=== PATIENT | male | born 1970 | race Caucasian/White ===

== ENCOUNTER 2018-10-09 10:49 | Emergency (ER) | payer OTHER ==
[2018-10-09 11:10] VITALS: BP 145/103
--- NOTE | 2018-10-09 12:27 | ED Physician Documentation ---
PD HPI UPPER EXT INJURY - Stated complaint Stated Complaint: LT BICEP INJURY - Chief complaint Chief Complaint: Ext Problem - History obtained from History obtained from: Patient - History of Present Illness Location: Left, Arm Type of injury: Other (sudden weight) Where injury occurred: Work Timing - onset: Today Timing - duration: Hours Timing - details: Abrupt onset, Still present Improved by: Rest, Immobilization Worsened by: Moving, Palpating Associated symptoms: Swelling. 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 He is working a supervisory capacity at the current time. Review of Systems Constitutional: denies: Fever Nose: denies: Congestion Throat: denies: Sore throat Respiratory: denies: Cough GI: denies: Vomiting PD PAST MEDICAL HISTORY - Past Medical History Past Medical History: No - Allergies Allergies/Adverse Reactions: Allergies Allergy/AdvReac Type Severity Reaction Status Date / Time Penicillins Allergy Unknown Verified 10/09/18 11:05 - Social History Does the pt smoke?: No Smoking Status: Never smoker PD ED PE NORMAL - Vitals Vital signs reviewed: Yes (hypertensive) - General General: No acute distress, Well developed/nourished - HEENT HEENT: Atraumatic, PERRL, EOMI - Neck Neck: Supple, no meningeal sign - Respiratory Respiratory: No respiratory distress - Derm Derm: Normal color, Warm and dry, No rash - Extremities Extremities: Other (There is deformity to the distal biceps on the left with bunching of the muscle proximally and tenderness to the insertion of the tendon into the muslce. He is able to flex against some resistance. 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, No motor deficit, No sensory deficit, Normal speech Eye Opening: Spontaneous Motor: Obeys Commands Verbal: Oriented GCS Score: 15 - Psych Psych: Normal mood, Normal affect Results - Vitals Vitals: Vital Signs - 24 hr 10/09/18 11:01 Temperature 36.3 C L Heart Rate 96 Respiratory 16 Rate Blood Pressure 145/103 H O2 Saturation 100 Oxygen O2 Source Room air PD MEDICAL DECISION MAKING - ED course Complexity details: reviewed results, re-evaluated patient, considered differential, d/w patient ED course: 48-year-old male with a distal left biceps tendon rupture is placed into a sling he is given 10 mg of dexamethasone and he will follow-up with orthopedics. Departure - Departure Disposition: 01 Home, Self Care Clinical Impression: Rupture of left distal biceps tendon Qualifiers: Encounter type: initial encounter Qualified Code(s): S46.212A - Strain of muscle, fascia and tendon of other parts of biceps, left arm, initial encounter Condition: Stable Instructions: Biceps Tendonitis Distal Follow-Up: Aleksandr Delgado MD [Primary Care Provider] - [facility] [Provider Group] Discharge Date/Time: 10/09/18 12:55
[2018-10-09] MEDS ORDERED: DEXAMETHASONE 10 MG/ML VIAL PO STA (12:29)
[2018-10-09] MEDS ORDERED: CHERRY SYRUP 10 ML UDC PO ONE (12:29)
--- NOTE | 2018-10-10 06:18 | XRAY Report ---
Reason: TRAUMA Procedure Date: 10/09/2018 Accession Number: [id number] / [id number] Procedure: XR - Elbow 3 View LT CPT Code: FULL RESULT: EXAM: LEFT ELBOW RADIOGRAPHY EXAM DATE: 10/09/2018 11:41 AM. CLINICAL HISTORY: TRAUMA. Snapping sound COMPARISON: None. TECHNIQUE: 3 views. FINDINGS: Bones: Normal. No fractures or bone lesions. Joints: Normal. No effusion. No subluxation. Soft Tissues: Normal. No soft tissue swelling. IMPRESSION: Normal elbow radiography. RADIA
== END 2018-10-09 12:55 | disposition home or self-care (01) ==
LOC: ED 10:49
DX: S46.212A Strain of muscle, fascia and tendon of other parts of biceps, left arm, initial encounter (principal); X50.0XXA Overexertion from strenuous movement or load, initial encounter; Y93.89 Activity, other specified; Y99.0 Civilian activity done for income or pay
CPT/HCPCS: 1040M; 73080; 99282; 99283; A9270

== ENCOUNTER 2018-10-13 10:27 | Outpatient (CLI) | payer OTHER ==
[2018-10-13 10:39] LABS: BASOPHILS # (AUTO) 0.1 10^3/uL (0.0-0.1); BASOPHILS % (AUTO) 0.7 %; EOSINOPHILS # (AUTO) 0.2 10^3/uL (0.0-0.7); EOSINOPHILS % (AUTO) 2.3 %; LYMPHOCYTES # (AUTO) 1.8 10^3/uL (1.5-3.5); LYMPHOCYTES % (AUTO) 22.2 %; MEAN CORPUSCULAR HEMOGLOBIN 31.3 pg (27.0-31.0); MEAN CORPUSCULAR HGB CONC 33.9 g/dL (32.0-36.0); MEAN CORPUSCULAR VOLUME 92.3 fL (80.0-94.0); MEAN PLATELET VOLUME 9.4 fL (7.4-11.4); MONOCYTES # (AUTO) 0.5 10^3/uL (0.0-1.0); NEUTROPHILS # (AUTO) 5.4 10^3/uL (1.5-6.6); PLT - PLATELET COUNT 315 10^3/uL (130-450); RED BLOOD COUNT 4.16 10^6/uL (4.70-6.10); RED CELL DISTRIBUTION WIDTH 13.4 % (12.0-15.0); WHITE BLOOD COUNT 8.1 x10^3/uL (4.8-10.8)
[2018-10-13 10:48] LABS: CALCIUM 9.3 mg/dL (8.5-10.3); CREATININE 0.8 mg/dL (0.6-1.2)
== END 2018-10-13 10:28 | disposition home or self-care (01) ==
LOC: LAB 10:27
PROVIDERS: ATTEND Orthopaedic Surgery Sports Medicine
DX: Z01.812 Encounter for preprocedural laboratory examination (principal); S46.212A Strain of muscle, fascia and tendon of other parts of biceps, left arm, initial encounter; S46.222A Laceration of muscle, fascia and tendon of other parts of biceps, left arm, initial encounter; E11.9 Type 2 diabetes mellitus without complications
CPT/HCPCS: 36415; 80048; 85025

== ENCOUNTER 2018-10-18 07:49 | Day surgery (SDC) | payer OTHER ==
[2018-10-18] MEDS ORDERED: PROPOFOL 200 MG/20 ML VIAL IVP ONE (07:50)
[2018-10-18] MEDS ORDERED: MIDAZOLAM 2 MG/2 ML VIAL IVP ONE (07:50)
[2018-10-18] MEDS ORDERED: ONDANSETRON 4 MG/2 ML VIAL IVP ONE (07:50)
[2018-10-18] MEDS ORDERED: KETOROLAC 30 MG/ML VIAL IVP ONE (07:50)
[2018-10-18] MEDS ORDERED: LACTATED RINGERS 1,000 ML IV ONE (08:06)
[2018-10-18] MEDS ORDERED: CEFAZOLIN SODIUM IN 0.9 % NACL 2 GM/100 ML BAG IV ONE (08:08)
--- NOTE | 2018-10-18 10:01 | ANESTHESIA ---
Pre-Anesthesia VS, & Labs - Diagnosis left distal biceps avulsion - Procedure left distal biceps debridement/repair Height 5 ft 10 in Weight (kg) 115.6 kg Body Mass Index 35.9 - NPO >8 hours Home Medications and Allergies Home Medications: Ambulatory Orders Citalopram [CeleXA] 20 mg PO DAILY 10/17/18 Lisinopril 5 mg PO DAILY 10/17/18 Rosuvastatin Calcium 20 mg PO DAILY 10/17/18 metFORMIN [Glucophage] 500 mg PO DAILY 10/17/18 Citalopram [CeleXA] 20 mg PO DAILY 10/17/18 Lisinopril 5 mg PO DAILY 10/17/18 Rosuvastatin Calcium 20 mg PO DAILY 10/17/18 metFORMIN [Glucophage] 500 mg PO DAILY 10/17/18 Allergies/Adverse Reactions: Allergies Allergy/AdvReac Type Severity Reaction Status Date / Time Penicillins Allergy Rash Verified 10/18/18 08:22 Anes History & Medical History - Anesthetic History Anesthesia Complications: reports: No previous complications - Medical History Cardiovascular: reports: Hypertension, High cholesterol Pulmonary: reports: None Gastrointestinal: reports: GERD, Other Urinary: reports: None Musculoskeletal: reports: Other Endocrine/Autoimmune: reports: Type 2 diabetes Skin: reports: None Smoking Status: Never smoker Exam General: Alert Dental: WNL Mouth Opening: Greater than 4 Fingerbreadths Mallampati classification: II Thyromental Distance: greater than 6 cm Respiratory: Lungs clear, Normal breath sounds Cardiovascular: Regular rate, Normal S1, Normal S2 Mental/Cognitive Status: Alert/Oriented X3 Plan Anesthesia Type: General, Supraclavicular Block Consent for Procedure(s) Verified and Reviewed: Yes Code Status: Attempt Resuscitation ASA classification: 2-Mild systemic disease Is this case an emergency?: No
[2018-10-18] MEDS ORDERED: ACETAMINOPHEN 1,000 MG/100 ML 100 ML IV ONE (10:40)
[2018-10-18] MEDS ORDERED: CELECOXIB 100 MG CAPSULE PO ONE (10:41)
[2018-10-18] MEDS ORDERED: GABAPENTIN 400 MG CAPSULE ONE (10:41)
[2018-10-18] MEDS ORDERED: DEXAMETHASONE 4 MG/ML VIAL ONE (10:43)
[2018-10-18] MEDS ORDERED: fentaNYL 100 MCG/2 ML VIAL ONE (10:43)
[2018-10-18] MEDS ORDERED: MIDAZOLAM 2 MG/2 ML VIAL ONE (10:43)
[2018-10-18] MEDS: BUPIVACAINE 0.25%-EPI 1:200000 PF 30 ML VIAL ONE ×3 (12:35→13:13)
[2018-10-18] MEDS ORDERED: oxyCODONE 5 MG TABLET PO PRN (13:43)
--- NOTE | 2018-10-18 13:43 | IMMEDIATE POSTOPERATIVE NOTE ---
Immediate Postoperative Note - Procedure Note Procedure Date: 10/18/18 Pre-Op Diagnosis: Left distal biceps avulsion Procedure: Left distal biceps debridement and repair Post-Op Diagnosis: Same Primary Surgeon: Aye Nguyen MD Software Asset Management Analyst: None Anesthesia Type: General LMA, Local, Regional block Findings: Distal biceps avulsion and retraction and to arm some injury at musculotendinous junction of biceps though overall With good continuity Complications: No complications Estimated Blood Loss (in cc): 25 Plan of Care: Patient tolerated procedure well instrument sponge counts correct patient transferred to recovery room in stable condition. Patient will follow standard postop left distal biceps repair protocol. He will avoid active elbow flexion. He may do active wrist and hand activity. He will avoid weightbearing lift push pull left upper extremity. He would be in sling. He will follow-up in 10 to 14 days or sooner as needed basis.
[2018-10-18 15:11] VITALS: BP 132/75
--- NOTE | 2018-10-20 04:29 | OPERATIVE REPORT ---
DATE OF SERVICE: 10/18/2018 Physician: Sean Nguyen MD SURGEON: Sean Nguyen MD MANAGER PROGRAM MANAGEMENT: None. ANESTHESIA PROVIDER: Farrah Solo CRNA. ANESTHESIA TYPE: General anesthesia as well as ultrasound-guided left upper extremity regional block by anesthesia team as well as 20 mL of 0.25% Marcaine with epinephrine local. FLUIDS: 900 mL lactated Ringer's. COMPRESSION DEVICE: Bilateral calf SCD boots. ESTIMATED BLOOD LOSS: 25 mL. PREOPERATIVE ANTIBIOTICS: Weight-based IV Ancef. TOURNIQUET TIME: 57 minutes. Please see nursing report for further detail. TOURNIQUET PRESSURE: 250 mmHg. PREOPERATIVE DIAGNOSIS: Left distal biceps avulsion. POSTOPERATIVE DIAGNOSIS: Left distal biceps avulsion. PERFORMED: Left open distal biceps debridement and repair. INTRAOPERATIVE COMPLICATIONS: None noted. INTRAOPERATIVE FINDINGS: There was noted to be a complete avulsion of the distal biceps from the bicipital tuberosity of the radius. There is some maceration of the musculotendinous junction of the biceps, but overall integrity of the biceps muscle construct. There is near anatomic positioning of the biceps repair with good integrity of the repair with elbow range of motion. HISTORY OF PRESENT ILLNESS AND INDICATIONS: Patient is a 48-year-old gentleman who sustained a distal biceps rupture, is indicated for operative treatment. He had risks, benefits, and alternatives of operative and nonoperative treatment were reviewed in the clinic. His questions are answered, verbalized understanding of the above and verbalized wish to proceed with operative treatment. Informed consent was given. He wished to continue with this plan in the preoperative care unit on the day of surgery. PROCEDURE: On 10/18/2018, patient is identified in the preoperative care unit and identifies his left elbow as the operative site. This is signed by the operating surgeon. The patient received ultrasound-guided left upper extremity regional block by anesthesia team after site identification. Patient is then brought to the operating room. General anesthesia is administered and he is placed supine on the operating table with head, neck and extremities placed in anatomically comfortable and safe positions to avoid peripheral nerve stretch and compression. At this time, left upper extremity is placed with a well-padded tourniquet high on the arm, taking care to avoid encumbrance of the axilla. Then patient's left elbow and left upper extremity are pre-scrubbed with Hibiclens solution and then alcohol, followed by ChloraPrep and drape. At this point, surgical pause identifies left elbow as the operative site. Esmarch bandage is used for exsanguination and tourniquet is inflated. At this point, linear incision is made just distal to the antecubital crease. This incision is made through skin and spreading dissection is carried out. Care is taken to avoid iatrogenic injury to adjacent lateral antebrachial cutaneous nerve, which is identified and protected. At this point, digital dissection is carried out proximally such that the distal aspect of the triceps is identified and delivered with an Allis clamp. This is debrided with Metzenbaum scissors and copiously irrigated. At this point, #5 FiberWire is whipstitched from distal to proximal and then again distal. At this point, a biceps button OneTwoSee is used and the #5 FiberWire is placed through this per standard fashion such that this could be toggled later. This is set aside in the incision proximally and then attention is directed towards identifying the bicipital tuberosity radius. There is generally a pathway from the biceps down to the bicipital tuberosity with a donor site noted on the bicipital tuberosity of the radius. The [TIME: 03:50]are placed directly on the proximal radius to avoid iatrogenic injury to adjacent nerves. Supination is maintained and bicipital tuberosity is identified and a pin is placed here. This is confirmed using mini C-arm fluoroscopic image to be in appropriate position, at which point the biceps is sized and noted to be size 7, at which point guidepin is brought just into the second cortex and then the reamer is brought through the first cortex. Copious irrigation is performed with bony debris evacuation, at which point the guidepin is removed and then using the hernadez, the biceps button is placed into the socket through the second cortex, but not beyond that and allowed to toggle directly on the outer side of the second cortex, and then the elbow is flexed gently while maintaining supination as the biceps is toggled, such that it seats in the socket approximately 8-10 mm. At this point, using the arthroscopic knot pusher a surgeon's knot is tied and then multiple reverse half hitches, thereby fixing the biceps into the socket. Suture limbs are cut. The biceps is visualized and palpated to be directly in the bicipital tuberosity of the radius, integrity is confirmed. At this point, copious irrigation is performed. Hemostasis is achieved and then the skin is closed in layered fashion using 0 Vicryl, 2-0 Vicryl, and subcuticular Monocryl. Skin is washed and dried. Local anesthetic is infused. Steri-Strips are applied. Xeroform dressing is applied and then the patient is placed in a bulky splint with the elbow at 90 degrees and the forearm in neutral. The patient is placed in a sling. The patient tolerated the procedure well. Instrument and sponge counts correct. The patient is transferred to recovery room in stable condition. He will follow standard postoperative distal biceps repair protocol. He will be on perioperative antibiotics for 24 hours. He will be on p.r.n. narcotic analgesics with [id number] bowel regimen as necessary. He would avoid weightbearing, lift, push pull of left upper extremity. He would be encouraged to move hand and wrist. He would elevate as directed. He will follow up in 10- 14 days or sooner on an as-needed basis. The patient had previously had his questions answered and verbalized agreement with the plan as outlined. Additional procedure: Radiographic images mini C arm fluoroscopic image 3 views left elbow: AP and AP with pronation/ supination Radiographic indications intraoperative position of guidewire and implants left distal biceps repair Radiographic findings demonstrate guidepin in the bicipital tuberosity of the radius and then subsequent metallic button on opposite cortex of the bicipital tuberosity of the radius with absence of bone in the bicipital tuberosity radius consistent with socket no intra-articular hardware appropriate hardware position noted Radiographic impression left elbow as above TD: 10/19/2018 17:24 YOLANDA
== END 2018-10-18 07:50 | disposition home or self-care (01) ==
LOC: SDS 07:49
PROVIDERS: ATTEND Orthopaedic Surgery Sports Medicine
PROC: 0LM40ZZ Reattachment of Left Upper Arm Tendon, Open Approach (ICD-10-PCS; principal; 2018-10-18 10:00)
DX: S46.212A Strain of muscle, fascia and tendon of other parts of biceps, left arm, initial encounter (principal); X50.0XXA Overexertion from strenuous movement or load, initial encounter; Y93.H3 Activity, building and construction; Y92.69 Other specified industrial and construction area as the place of occurrence of the external cause; Y99.0 Civilian activity done for income or pay; E11.9 Type 2 diabetes mellitus without complications; I10 Essential (primary) hypertension
CPT/HCPCS: 24342; A9270; C1713; J0131; J0690; J7120